=== PATIENT | female | born 1995 | race Caucasian/White ===

== ENCOUNTER 2017-08-15 08:07 | Emergency (ER) | payer BC ==
[2017-08-15 08:12] VITALS: BP 82/52
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
== END 2017-08-15 09:19 | disposition home or self-care (01) ==
PROC: 0HQFXZZ Repair Right Hand Skin, External Approach (ICD-10-PCS; principal; 2017-08-15)
DX: S61.210A Laceration without foreign body of right index finger without damage to nail, initial encounter (principal); W26.0XXA Contact with knife, initial encounter